=== PATIENT | female | born 1960 | race Caucasian/White ===

== ENCOUNTER 2016-06-23 14:31 | Emergency (ER) | payer MEDICARE, MEDICAID ==
[2016-06-23 14:44] VITALS: BP 137/82
--- NOTE | 2016-06-23 14:53 | UC ---
Throat Pain/Nasal Navin HPI - HPI Summary HPI Summary: here with caregiver Su complaint of cough, nasal congestion that started aapox 2 weeks ago cough is productive ears are painful face feels puffier than normal good appetite and drinking fluids taking guaifiniscen without relief of cough denies fever and chills - History of Current Complaint Chief Complaint: UCRespiratory Stated Complaint: COUGH,CHEST CONGESTION,SINUS Time Seen by Provider: 06/23/16 14:42 Hx Obtained From: Patient, Family/Bone Worker PMH/Surg Hx/FS Hx/Imm Hx Previously Healthy: Yes Endocrine History Of: Reports: Diabetes Denies: Thyroid Disease Cardiovascular History Of: Denies: Cardiac Disorders, Hypertension Respiratory History Of: Denies: COPD, Asthma GI/ History Of: Denies: Ulcer - Family History Known Family History: Negative: Cardiac Disease, Hypertension, Diabetes - Social History Occupation: Disabled Lives: Assisted Living Alcohol Use: None Substance Use Type: None Smoking Status (MU): Never Smoked Tobacco Review of Systems Constitutional: Negative Skin: Negative Eyes: Negative ENT: Sore Throat, Ear Ache, Nasal Discharge Respiratory: Cough Cardiovascular: Negative Gastrointestinal: Negative Genitourinary: Negative Motor: Negative Neurovascular: Negative Musculoskeletal: Negative Neurological: Negative Psychological: Negative All Other Systems Reviewed And Are Negative: Yes Physical Exam Triage Information Reviewed: Yes Appearance: No Pain Distress, Well-Nourished Vital Signs: Initial Vital Signs Temp 99.9 F 06/23/16 14:36 Pulse 100 06/23/16 14:36 Resp 16 06/23/16 14:36 BP 137/82 06/23/16 14:36 Pulse Ox 96 06/23/16 14:36 Vital Signs Reviewed: Yes Eyes: Positive: Conjunctiva Clear - maxillary sinus tenderness R>L ENT: Positive: Pharyngeal erythema, Nasal congestion, Nasal drainage, TMs normal. Negative: TM red Neck: Positive: No Lymphadenopathy Respiratory: Positive: Lungs clear, Normal breath sounds, No respiratory distress Cardiovascular: Positive: RRR, No Murmur, Pulses Normal Abdomen Description: Positive: Nontender, Soft Bowel Sounds: Positive: Present Neurological: Positive: Alert Psychological Exam: Normal Throat Pain/Nasal Course/Dx - Course Course Of Treatment: exam completd. will treat for sinusitis secondary to URI- length of illness, sinus tenderness - Differential Dx/Diagnosis Differential Diagnosis/HQI/PQRI: Otitis Media, Pharyngitis, Sinusitis Provider Diagnoses: sinusitis Discharge - Discharge Plan Condition: Stable Disposition: HOME Prescriptions: Amoxicillin/Clavulanate TAB* [Augmentin TAB 875*] 875 mg PO BID #20 tab Patient Education Materials: Sinusitis (ED) Referrals: Chano Nowak MD [Primary Care Provider] - Additional Instructions: SINUSITIS What is Sinusitis? Sinusitis is inflammation or infection of the lining of the sinuses behind the bones in your cheeks or forehead. Sinusitis may occur following a common cold, flu, or other infection; allergies; a tooth infection that spreads to the sinuses; swimming in contaminated water; pressure changes in airplanes at high altitudes; violent sneezing or nose blowing or smoking or breathing other peoples smoke. Symptoms Might Include: Nasal Congestion Sneezing Watery eyes, eye irritation, or eye itching Headaches Pressure in the cheeks Wheezing Trouble smelling Sore throat and coughing may occur Treatment Recommendations: Take medicines as prescribed until completely gone. Drink plenty of fluids. Use saline nose spray to thin the mucous and help the sinuses drain. Use a vaporizer or humidifier. Apply warm compresses to the face or forehead several times a day for 10 to 20 minutes. Call Your Doctor or Return Here IF: Your pain increases during treatment. You develop a high temperature. You develop unusual swelling around the eyes. You have difficulty with your vision. You develop a severe headache, earache, or toothache. You develop increased fever or fever that does not respond to medication such as Tylenol?. You have difficulty breathing or catching your breath. You begin to have any other new symptoms that worry you.
== END 2016-06-23 15:09 | disposition home or self-care (01) ==
LOC: UCCORT 14:31
DX: J32.9 Chronic sinusitis, unspecified (principal); E11.9 Type 2 diabetes mellitus without complications
CPT/HCPCS: 99202; G0463

== ENCOUNTER 2016-11-26 10:10 | Emergency (ER) | payer MEDICARE, MEDICAID ==
[2016-11-26 10:49] VITALS: BP 132/77
--- NOTE | 2016-11-26 12:06 | UC ---
Eye Complaint HPI - HPI Summary HPI Summary: 56 female presents with complaints of bilateral eye itchiness, redness and discharge that began last night and has worsened today. She also admits to crusting bilaterally upon waking this morning. She is also having some swelling surrounding both eyes. She admits to having some congestion due to allergies and also has asthma. Denies any other complaints at this time. Patient is legally blind. Denies trauma or anything getting into her eyes. PMHx significant for, allergies, asthma, CVA, pneumonia. Denies fever/chills. No known pink eye contact. - History of Current Complaint Chief Complaint: UCEye Stated Complaint: EYE COMPLAINT,CONGESTION Time Seen by Provider: 11/26/16 11:51 Hx Obtained From: Patient, Family/Application Counselor - mother ?: No Onset/Duration: Sudden Onset, Lasting Days - began yesterday, Still Present, Worse Since Timing: Constant Severity Initially: Mild Severity Currently: Mild Pain Intensity: 1 Pain Scale Used: 0-10 Numeric Location of Injury: Conjunctiva Aggravating Factor(s): Nothing Alleviating Factor(s): Nothing Associated Signs And Symptoms: Positive: Drainage (Purulent) - b/l - Allergies/Home Medications Allergies/Adverse Reactions: Allergies Allergy/AdvReac Type Severity Reaction Status Date / Time No Known Allergies Allergy Verified 11/26/16 10:53 Home Medications: Home Medications Albuterol HFA INHALER* [Ventolin HFA Inhaler*] 2 puff INH Q4H PRN 11/26/16 [ History Confirmed 11/26/16] Aspirin Low Dose CHEW TAB* [Aspirin Low Dose TAB*] 81 mg PO DAILY 11/26/16 [ History Confirmed 11/26/16] Cetirizine* [ZyrTEC 10 MG TAB*] 10 mg PO BID 11/26/16 [History Confirmed ] Cholecalciferol [Vitamin D3] 2,000 unit PO DAILY 11/26/16 [History Confirmed 06/02] Divalproex Sprinkle CAP* [Depakote Sprinkle CAP*] 4 cap PO BID 11/26/16 [ History Confirmed 11/26/16] Docusate CAP* [Colace Cap*] 100 mg PO BID 11/26/16 [History Confirmed 11/26/16] Inulin [Fiber Choice Fruity Bites] 1.5 gm PO DAILY 11/26/16 [History Confirmed 11/26/16] Levothyroxine TAB* [Synthroid TAB*] 50 mcg PO DAILY 11/26/16 [History Confirmed 11/26/16] [place] Carbonate TAB* 300 mg PO TID 11/26/16 [History Confirmed 11/26/16] Multivitamins/Minerals TAB* [Thera M Plus TAB*] 1 tab PO DAILY 11/26/16 [ History Confirmed 11/26/16] Omeprazole CAP* [Prilosec CAP* 20 MG] 40 mg PO DAILY 11/26/16 [History Confirmed 11/26/16] Perphenazine TAB* [Trilafon TAB*] 2 mg PO DAILY 11/26/16 [History Confirmed 06/02] PMH/Surg Hx/FS Hx/Imm Hx Respiratory History: Asthma, Pneumonia Neurological History: CVA - Surgical History Surgical History: Yes Surgery Procedure, Year, and Place: gall bladder. T&A - Family History Known Family History: Negative: Cardiac Disease, Hypertension, Diabetes - Social History Alcohol Use: None Substance Use Type: None Smoking Status (MU): Never Smoked Tobacco - Immunization History Vaccination Up to Date: Yes Review of Systems Constitutional: Negative Skin: Negative Eyes: Drainage, Eye Redness, Other - legally blind ENT: Nasal Discharge Respiratory: Cough Cardiovascular: Negative Gastrointestinal: Negative All Other Systems Reviewed And Are Negative: Yes Physical Exam Triage Information Reviewed: Yes Appearance: Well-Appearing, No Pain Distress, Well-Nourished Vital Signs: Initial Vital Signs Temp 98.6 F 11/26/16 10:44 Pulse 94 11/26/16 10:44 Resp 16 11/26/16 10:44 BP 132/77 11/26/16 10:44 Pulse Ox 96 11/26/16 10:44 Vital Signs Reviewed: Yes Eyes: Positive: Conjunctiva Inflamed, Discharge - b/l erythematous conjunctiva. thick yellow discharge b/l with some periorbital swelling and erythema. unable to assess visual acuity due to patient being legally blind. PERRLA and fundoscopic exam normal from what could be visualized. No FB or signs of trauma ENT: Positive: Normal ENT inspection, Hearing grossly normal, Pharynx normal, TMs normal. Negative: Nasal congestion, Nasal drainage Dental: Negative: Percussion Tenderness @, Cervical Lymphadenopathy Neck: Positive: Supple, Nontender, No Lymphadenopathy Respiratory: Positive: Chest non-tender, Lungs clear, Normal breath sounds, No respiratory distress, No accessory muscle use. Negative: Crackles, Rhonchi, Stridor, Wheezing Cardiovascular: Positive: RRR, No Murmur, Pulses Normal, Brisk Capillary Refill Bowel Sounds: Positive: Present Musculoskeletal: Positive: Strength Intact, ROM Intact Neurological: Positive: Alert Psychological Exam: Normal Skin Exam: Normal Eye Complaint Course/Dx - Course Course Of Treatment: based on PE findings and HPI patient will be treated for bacterial conjunctivitis at this time. continue zyrtec and inhaler for congestion. aware of worsening signs and symptoms. erythromycin ointment and warm compresses. follow up pcp. - Differential Dx/Diagnosis Differential Diagnosis/HQI/PQRI: Conjunctivitis, Corneal Abrasion, Foreign Body , Other Provider Diagnoses: bilateral eye conjunctivits Discharge - Discharge Plan Condition: Stable Disposition: HOME Prescriptions: Erythromycin TOPICAL GEL* [Erythromycin OPTH OINT*] 1 applic TOPICAL QID #1 oint Patient Education Materials: Conjunctivitis (ED), Erythromycin (Into the eye) Referrals: Orquidea Mustafa MD [Primary Care Provider] - Additional Instructions: Use prescribed antibiotic eye ointment and apply as we discussed four times a day for 7 days to both eyes. Continue taking Zyrtec and using inhaler as directed. Wash hands frequently, avoid touching your eyes. Apply warm compresses. Wash pillow cases, towels and blankets frequently to avoid spread of germs, as this is contagious. Follow up with PCP. Return if symptoms worsen or do not improve.
== END 2016-11-26 12:14 | disposition home or self-care (01) ==
LOC: UCCORT 10:10
DX: H10.33 Unspecified acute conjunctivitis, bilateral (principal); J45.909 Unspecified asthma, uncomplicated; Z86.73 Personal history of transient ischemic attack (TIA), and cerebral infarction without residual deficits; Z90.49 Acquired absence of other specified parts of digestive tract
CPT/HCPCS: 99212; G0463

== ENCOUNTER 2016-11-30 12:10 | Emergency (ER) | payer MEDICARE, MEDICAID ==
--- NOTE | 2016-11-30 15:30 | UC ---
Respiratory Complaint HPI - HPI Summary HPI Summary: The patient comes in today for: 1. Cough, and "heavy breathing sometimes": Onset: 2-3 days. Palliative/provocative: Drinking water seems to help. Quality: Mild Region: Upper respiratory Severity: 0/10 Time: Cough comes and goes. Associated symptoms: "Sometimes heavy breathing": This was last noticed about 12 noon today-- none since. Fevers: None. Cough: Productive "sometimes" by the patient's report, but her coughs here are non-productive. However, there is a report that she has coughed up green material. Dyspnea: She states that she has "a little bit" of shortness of breath at this time. Chest pain: She states that she has chest pain that is sharp on both sides of the chest. * - History of Current Complaint Stated Complaint: LOW GRADE FEVER SINUS Time Seen by Provider: 11/30/16 15:22 Hx Obtained From: Patient Hx Last Menstrual Period: None any more. 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 GI/ History: Gastroesophageal Reflux - When asked, she denies any GERD, but her record states that she does. Neurological History: Seizures - When asked the patient states that she does not have seizures, but her records states she does. Psychological History: Depression - Her record states that she is on lithium because of her having depression, Schizophrenia - Surgical History Surgical History: Yes Surgery Procedure, Year, and Place: gall bladder. T&A - Family History Known Family History: Negative: Cardiac Disease, Hypertension, Diabetes - Social History Occupation: Unemployed Alcohol Use: None Substance Use Type: None Smoking Status (MU): Never Smoked Tobacco - Immunization History Vaccination Up to Date: Yes Review of Systems Constitutional: Negative Skin: Negative Eyes: Negative ENT: Sore Throat Respiratory: Cough Cardiovascular: Chest Pain Gastrointestinal: Negative All Other Systems Reviewed And Are Negative: Yes Physical Exam Triage Information Reviewed: Yes Appearance: Well-Appearing, No Pain Distress, Well-Nourished, Other: - She has a frequent dry cough during my time with her. Vital Signs Reviewed: Yes Eyes: Positive: Conjunctiva Clear. Negative: Discharge ENT: Positive: Hearing grossly normal, Other: - Right ear: Cerumen in place--no canal erythema or edema. Left ear: TM onofre and translucent.. Negative: Pharyngeal erythema, Nasal congestion, Nasal drainage, Tonsillar swelling, Tonsillar exudate Dental: Negative: Gross Decay/Caries @, Dental Fracture @ Neck: Positive: Supple, Nontender, No Lymphadenopathy. Negative: Nuchal Rigidity Respiratory: Positive: Lungs clear - However, the patient does not follow breathing instructions (taking a deep breath). However, she will repeat "blue jimenez" to check for vocal fremitus which was normal., No respiratory distress, No accessory muscle use. Negative: Rhonchi, Wheezing Cardiovascular: Positive: RRR, No Murmur Abdomen Description: Positive: Nontender, No Organomegaly, Soft. Negative: Distended, Guarding Musculoskeletal: Positive: Strength Intact, ROM Intact, No Edema, Other: - Even though she stated that she had chest pain during the history, she denied any chest pain during the exam. Neurological: Positive: Alert, Muscle Tone Normal Psychological: Positive: Normal Response To Family, Age Appropriate Behavior, Consolable Skin: Negative: rashes, breakdown UC Diagnostic Evaluation - Laboratory Diagnostic Studies Comment: EKG: Rate: 99. Rhythm: sinus. Ectopy: NOne. Acute changes: None--no ST elevation. LAD: -30 degrees. - Radiology Xray Interpretation: Positive (See Comments) - Possible consolidation vs atelactasis. Radiology Interpretation Completed By: Radiologist Re-Evaluation - Re-Evaluation First Eval Change: Improved - Breathing better. No chest pain. LUngs sound better--more inspiration/expriation cycle. Respiratory Course/Dx - Differential Dx/Diagnosis Differential Diagnosis/HQI/PQRI: Asthma, Bronchitis, Laryngitis Provider Diagnoses: Pneumonia. Asthma Discharge - Discharge Plan Condition: Stable Disposition: HOME Patient Education Materials: Pneumonia (ED), Asthma (ED) Referrals: Orquidea Mustafa MD [Primary Care Provider] - 1 Week (Please see your primary care provider in about one to two weeks to see how well you are doing. If you get worse, please be seen sooner.)
--- NOTE | 2016-11-30 16:13 | RAD ---
HISTORY: Cough, shortness of breath COMPARISONS: None VIEWS: 2: Frontal dual-energy and lateral views of the chest. FINDINGS: CARDIOMEDIASTINAL SILHOUETTE: The cardiomediastinal silhouette is normal. NURA: The nura are normal. PLEURA: The costophrenic angles are sharp. No pleural abnormalities are noted. LUNG PARENCHYMA: There is minimal patchy alveolar desiccation of the lung bases bilaterally ABDOMEN: The upper abdomen is clear. There is no subphrenic gas. BONES AND SOFT TISSUES: Degenerative changes are noted along the spine. OTHER: None. IMPRESSION: MINIMAL PATCHY BIBASILAR ATELECTASIS VERSUS EARLY CONSOLIDATION
[2016-11-30] MEDS ORDERED: Albuterol/Ipratropium NEB.SOL* Albuterol 2.5 MG/Ipratropium 0.5 MG 3 ML INH ONE (16:27)
[2016-11-30 16:48] VITALS: BP 141/53
== END 2016-11-30 17:29 | disposition home or self-care (01) ==
LOC: UCCORT 12:10
DX: J18.9 Pneumonia, unspecified organism (principal); J45.909 Unspecified asthma, uncomplicated; H54.0 Blindness, both eyes; F70 Mild intellectual disabilities; G47.33 Obstructive sleep apnea (adult) (pediatric); I10 Essential (primary) hypertension; K21.9 Gastro-esophageal reflux disease without esophagitis; R56.9 Unspecified convulsions; F32.9 Major depressive disorder, single episode, unspecified; F20.9 Schizophrenia, unspecified
CPT/HCPCS: 71020; 93005; 99213; A9270-GY; G0463